=== PATIENT | male | born 2005 | race Caucasian/White ===

== ENCOUNTER 2025-09-13 16:19 | Emergency (ER) | payer BC ==
[~2025-09-13] VITALS: Ht 177.8 cm; Wt 72.7 kg
[2025-09-13 16:32] VITALS: O2SAT 98
[2025-09-13 17:09] LABS: BASOPHILS % 0.6 % (0.0-2.0); EOSINOPHILS % 5.1 % (0.0-5.0); HEMATOCRIT. 42.3 % (42.0-52.0); HEMOGLOBIN. 14.8 g/dL (14.0-18.0); LYMPHOCYTES % 32.5 % (20.0-50.0); MEAN PLATELET VOLUME 7.4 fl (7.4-10.4); MONOCYTES % 6.6 % (2.0-8.0); NEUTROPHILS % 55.2 % (40.0-76.0); PLATELET 361 x1000/uL (130-400); RED BLOOD CELL COUNT 5.08 mill/uL (4.7-6.1); RED CELL DISTRIBUTION WIDTH 12.6 % (11.6-14.6)
[2025-09-13 17:26] LABS: CREATININE 1.0 mg/dL (0.6-1.3); UREA NITROGEN BLOOD 14 mg/dL (9-23)
[2025-09-13 17:27] LABS: TROPONIN I HIGH SENSITIVITY 6 ng/L (3.0-53)
[2025-09-13 18:56] VITALS: BP 129/56; PULSE 82; RESP 18; TEMP 36.8; O2SAT 97
== END 2025-09-13 19:04 | disposition home or self-care (01) ==
LOC: ER 16:19
DX: R07.89 Other chest pain (principal); D68.51 Activated protein C resistance
CPT/HCPCS: 36415; 71045; 80048; 84484; 85025; 93005; 99285